=== PATIENT | male | born 1940 | race Hispanic/Latino ===

== ENCOUNTER 2017-02-02 09:05 | Emergency (ER) | payer MEDICARE ==
[2017-02-02 09:24] VITALS: BMI 31.8
[2017-02-02 09:52] LABS: RBC URINE 1033 /hpf (0-3); URINE BILIRUBIN NEGATIVE (NEGATIVE); URINE BLOOD 3+ (NEGATIVE); URINE COLOR Yellow (YELLOW); URINE GLUCOSE (UA) NORMAL (Normal); URINE KETONE NEGATIVE (NEGATIVE); URINE LEUKOCYTE ESTERASE 3+ Leu/uL (Negative); URINE PROTEIN 2+ mg/dL (NEGATIVE); URINE UROBILINOGEN NORMAL mg/dL (0.2-1.0); WBC URINE 624 /hpf (0-5)
[2017-02-02 10:10] LABS: BASO # 0.2 K/uL (0.0-0.2); BASO % 2.6 % (0.0-2.0); EOS # 0.4 K/uL (0.0-0.7); EOS % 6.6 % (0.0-4.0); HEMATOCRIT 39.3 % (35.0-51.0); LYMPH # 1.2 K/uL (1.0-4.3); LYMPH % 18.8 % (20.0-40.0); MEAN CELL VOLUME 85.6 fL (80.0-94.0); MEAN CORPUSCULAR HGB CONC 32.6 g/dL (33.0-37.0); MEAN PLATELET VOLUME 7.7 fL (7.2-11.7); MONO # 0.8 K/uL (0.0-0.8); MONO % 12.7 % (0.0-10.0); RED CELL DISTRIBUTION WIDTH 15.4 % (11.5-14.5); WHITE BLOOD COUNT 6.6 K/uL (4.8-10.8)
[2017-02-02 10:22] LABS: ALB/GLOB RATIO 1.1 (1.0-2.1); ALKALINE PHOSPHATASE 118 U/L (38-126); ALT/SGPT 43 U/L (21-72); AST/SGOT 38 U/L (17-59); BILIRUBIN,TOTAL 1.1 mg/dL (0.2-1.3); BLOOD UREA NITROGEN 17 mg/dL (9-20); CALCIUM 9.6 mg/dl (8.6-10.4); CARBON DIOXIDE 32 mmol/L (22-30); CHLORIDE 99 mmol/L (98-107); GFR AFRICAN-AMERICAN > 60; GLUCOSE,RANDOM 121 mg/dL (75-110); POTASSIUM 4.1 mmol/L (3.6-5.2); SODIUM 141 mmol/L (132-148); TOTAL PROTEIN 7.2 g/dL (6.3-8.3)
--- NOTE | 2017-02-02 10:51 | C.PDOC ---
History Of Present Illness 76 year old male with a history of A-fib, spinal stenosis, and bladder CA presents to the ED as a referral by Dr. Dax Hughes for evaluation of intermittent episodes of hematuria for one month. Patient denies any pain, fever , dysuria, or other complaints at this time. Time Seen by Provider: 02/02/17 09:31 Chief Complaint (Nursing): Male Genitourinary History Per: Patient, Family ( ) History/Exam Limitations: no limitations Onset/Duration Of Symptoms: Intermittent Episodes (1 month ago ) Current Symptoms Are (Timing): Still Present Quality Of Discomfort: denies: "Pain" Associated Symptoms: Other (hematuria ). denies: Fever, Chills, Nausea, Vomiting, Diarrhea Recent travel outside of the [place]: No Additional History Per: Prior Records (Dr. Hughes ) Past Medical History Reviewed: Historical Data, Nursing Documentation, Vital Signs Vital Signs: Last Vital Signs Temp 98 F 02/02/17 09:24 Pulse 88 02/02/17 09:24 Resp 18 02/02/17 09:24 BP 135/86 02/02/17 09:24 Pulse Ox 94 L 02/02/17 12:36 - Medical History PMH: Asthma, Atrial Fibrillation Family History: States: Unknown Family Hx - Social History Hx Alcohol Use: No Hx Substance Use: No - Immunization History Hx Tetanus Toxoid Vaccination: No Hx Influenza Vaccination: No Hx Pneumococcal Vaccination: No Review Of Systems Constitutional: Negative for: Fever, Chills Cardiovascular: Negative for: Chest Pain Respiratory: Negative for: Shortness of Breath Gastrointestinal: Negative for: Nausea, Vomiting, Diarrhea Genitourinary: Positive for: Hematuria. Negative for: Dysuria, Incontinence Physical Exam - Physical Exam Appears: Non-toxic, No Acute Distress Skin: Warm, Dry Head: Atraumatic, Normacephalic Eye(s): bilateral: Normal Inspection Oral Mucosa: Moist Neck: Supple Chest: Symmetrical, No Deformity Cardiovascular: Rhythm Regular Respiratory: Normal Breath Sounds, No Rales, No Rhonchi, No Wheezing Gastrointestinal/Abdominal: Soft, Tenderness (RUQ tenderness ), No Distention, No Guarding, No Rebound Extremity: No Calf Tenderness, Other (venous stasis changes to lower extremities ) Neurological/Psych: Oriented x3, Normal Speech, Normal Cognition, Normal Motor, Normal Sensation Gait: Steady ED Course And Treatment - Laboratory Results Result Diagrams: 02/02/17 10:04 02/02/17 10:04 ECG: Interpreted By Me, Viewed By Me O2 Sat by Pulse Oximetry: 94 (room air ) - Other Rad Abdomen and Pelvis W/O contrast X-Ray: Viewed By Me, Read By Radiologist Interpretation: FINDINGS: LOWER THORAX: Cardiomegaly. Limited ground-glass opacities seen scattered both lung bases minimally. No pleural or pericardial effusion appreciable. LIVER: Unremarkable. No gross lesion or ductal dilatation. GALLBLADDER AND BILE DUCTS: Questionable sludge at the dependent gallbladder which is mildly distended and otherwise unremarkable appearing. PANCREAS: Unremarkable. No gross lesion or ductal dilatation. SPLEEN: Unremarkable. ADRENALS: Unremarkable. No mass. KIDNEYS AND URETERS: Nonspecific perinephric streaky changes are again identified, which appears stable, with no radiodense urolithiasis is identified at the right kidney or obstructive uropathy bilaterally. A 3-4 mm calcification may be vascular at the midpole left kidney, increased in size in the interval. A nonobstructing intrarenal calculus not completely excluded here. VASCULATURE: A mildly atherosclerotic abdominal aorta is appreciated. No aortic aneurysm. BOWEL: Unremarkable. No obstruction. No gross mural thickening. Prominent fecal loading is seen the right hemicolon. Limited proximal sigmoid/distal descending colonic diverticulosis without diverticulitis. APPENDIX: Not identified although no CT evidence of appendicitis is appreciated this time. PERITONEUM: Unremarkable. No free fluid. No free air. LYMPH NODES: Unremarkable. No enlarged lymph nodes. BLADDER: The bladder is not fully distended however mural thickening and pericystic reaction is questioned and consideration of cystitis should be made clinically. Further clinical correlation is advised nevertheless. A tiny left-sided urinary bladder diverticulum appears stable. REPRODUCTIVE: Prostate gland appears enlarged once again. BONES: Multilevel thoracolumbar spondylosis again evident. Stable grade 1 spondylolisthesis L5- S1. OTHER FINDINGS: A small right inguinal hernia contains only fat appearing stable in the interval. IMPRESSION: 1. A small vascular calcification is seen at the midpole left kidney, favored over nonobstructing intrarenal calculus. No obstructive uropathy bilaterally. Stable bilateral perinephric changes are appreciated bilaterally compared to prior CT 08/02/2014. 2. CT pattern suspicious for cystitis. Clinically correlate further. 3. Trace sludge question in the gallbladder. 4. Limited left colonic diverticulosis without diverticulitis pattern. 5. Enlarged prostate gland. Progress Note: Abdomen and pelvis W/O contrast CT, UA, blood work, and EKG was ordered. Disposition Discussed With .: Ariana Hughes Doctor Will See Patient In The: Office Counseled Patient/Family Regarding: Studies Performed, Diagnosis, Need For Followup - Disposition Referrals: Ariana Hughes MD [Staff Provider] - Alexandre Howard MD [Staff Provider] - Disposition: HOME/ ROUTINE Disposition Time: 12:33 Condition: STABLE Additional Instructions: Take antibiotics as indicated. Follow up with Dr. Hughes. Stop Prodaxa for 4 days, if bleeding stops continue. Follow up with Dr. Howard. Prescriptions: Nitrofurantoin Macrocrystals [Macrobid] 1 cap PO BID #14 cap Instructions: Urinary Tract Infection in Men (ED), Acute Hematuria (ED) Forms: [employer] (Nauruan) - POA Present On Arrival: None - Clinical Impression Clinical Impression: Hematuria, Cystitis - PA / [employer] SUPERVISOR / Resident Statement MD/DO has reviewed & agrees with the documentation as recorded. - Scribe Statement The provider has reviewed the documentation as recorded by the Scribe Raissa Rodas All medical record entries made by the Alfonsoibdanielle were at my direction and personally dictated by me. I have reviewed the chart and agree that the record accurately reflects my personal performance of the history, physical exam, medical decision making, and the department course for this patient. I have also personally directed, reviewed, and agree with the discharge instructions and disposition.
--- NOTE | 2017-02-02 11:45 | CT ---
PROCEDURE: CT Abdomen and Pelvis without intravenous contrast HISTORY: hematuria COMPARISON: Abdomen pelvis CT without contrast 08/02/2014. TECHNIQUE: Helical CT of the abdomen and pelvis was performed without oral or intravenous contrast as requested. Contrast Dose: None Radiation dose: Total exam DLP = 1354 mGy-cm. This CT exam was performed using one or more of the following dose reduction techniques: Automated exposure control, adjustment of the mA and/or kV according to patient size, and/or use of iterative reconstruction technique. FINDINGS: LOWER THORAX: Cardiomegaly. Limited ground-glass opacities seen scattered both lung bases minimally. No pleural or pericardial effusion appreciable LIVER: Unremarkable. No gross lesion or ductal dilatation. GALLBLADDER AND BILE DUCTS: Questionable sludge at the dependent gallbladder which is mildly distended and otherwise unremarkable appearing. PANCREAS: Unremarkable. No gross lesion or ductal dilatation. SPLEEN: Unremarkable. ADRENALS: Unremarkable. No mass. KIDNEYS AND URETERS: Nonspecific perinephric streaky changes are again identified, which appears stable, with no radiodense urolithiasis is identified at the right kidney or obstructive uropathy bilaterally. A 3-4 mm calcification may be vascular at the midpole left kidney, increased in size in the interval. A nonobstructing intrarenal calculus not completely excluded here. VASCULATURE: A mildly atherosclerotic abdominal aorta is appreciated. No aortic aneurysm. BOWEL: Unremarkable. No obstruction. No gross mural thickening. Prominent fecal loading is seen the right hemicolon. Limited proximal sigmoid/distal descending colonic diverticulosis without diverticulitis. APPENDIX: Not identified although no CT evidence of appendicitis is appreciated this time. PERITONEUM: Unremarkable. No free fluid. No free air. LYMPH NODES: Unremarkable. No enlarged lymph nodes. BLADDER: The bladder is not fully distended however mural thickening and pericystic reaction is questioned and consideration of cystitis should be made clinically. Further clinical correlation is advised nevertheless. A tiny left-sided urinary bladder diverticulum appears stable. REPRODUCTIVE: Prostate gland appears enlarged once again. BONES: Multilevel thoracolumbar spondylosis again evident. Stable grade 1 spondylolisthesis L5-S1. OTHER FINDINGS: A small right inguinal hernia contains only fat appearing stable in the interval. IMPRESSION: 1. A small vascular calcification is seen at the midpole left kidney, favored over nonobstructing intrarenal calculus. No obstructive uropathy bilaterally. Stable bilateral perinephric changes are appreciated bilaterally compared to prior CT 08/02/2014. 2. CT pattern suspicious for cystitis. Clinically correlate further. 3. Trace sludge question in the gallbladder. 4. Limited left colonic diverticulosis without diverticulitis pattern. 5. Enlarged prostate gland.
[2017-02-02] MEDS ORDERED: cefTRIAXone IV 1 gm in Dextros 50 ML IVPB ONE ×2 (12:13→13:05)
[2017-02-02 13:51] VITALS: BP 146/87; PULSE 82; RESP 17; TEMP 97.6; O2SAT 98
== END 2017-02-02 14:30 | disposition home or self-care (01) ==
LOC: C.ER 09:05
DX: N30.91 Cystitis, unspecified with hematuria (principal)
CPT/HCPCS: 74176; 80053; 81001; 85025; 94770; 96365; 99284; J0696